=== PATIENT | male | born 1985 | race Caucasian/White ===

== ENCOUNTER 2019-03-17 16:40 | Inpatient (IN) ==
[2019-03-17] MEDS ORDERED: ONDANSETRON 4 MG/2 ML VIAL ONE (17:30)
[2019-03-17] MEDS ORDERED: DICYCLOMINE 20 MG/2 ML AMP IM ONE (17:34)
[2019-03-17] MEDS ORDERED: metroNIDAZOLE INJ 500 MG in PREMIX 1 EACH IV STA (17:34)
[2019-03-17] MEDS ORDERED: ONDANSETRON 4 MG/2 ML VIAL IV STA ×2 (17:34→17:38)
[2019-03-17] MEDS ORDERED: HYDROmorphone 2 MG/1 ML VIAL IV STA (17:34)
[2019-03-17] MEDS ORDERED: SODIUM CHLORIDE 0.9% 2,000 ML IV STA (17:34)
[2019-03-17] MEDS ORDERED: methylPREDNISolone SOD SUC 125 MG/2 ML VIAL IV STA (17:34)
[2019-03-17] MEDS ORDERED: METOCLOPRAMIDE 10 MG/2 ML VIAL IV STA (17:34)
[2019-03-17] MEDS ORDERED: LEVOFLOXACIN INJ 750 MG in PREMIX 1 EACH IV STA (17:34)
[2019-03-17 17:46] LABS: Basophils % 0.2 % (0.0-0.8); Eosinophils % 0.1 % (0.00-10.9); Hematocrit 40.6 VOL% (42.0-52.0); Hemoglobin 14.4 GM/DL (14.0-18.0); Immature Granulocytes % 0.6 %; Lymphocytes % 5.6 % (21.2-54.2); Mean Corpuscular HGB Conc 35.5 GM/DL (32-36); Mean Corpuscular Volume 90.2 FL (87-102); Mean Platelet Volume 8.9 FL (9.6-12.0); Monocytes % 6.8 % (1.7-12.7); Neutrophils % 86.7 % (38.7-73.9); Platelet Count 393 T/CUMM (130-400); Red Cell Distribution Width 12.1 % (9.3-17.3); White Blood Count 17.3 T/CUMM (4-12)
[2019-03-17 18:37] LABS: Apearance,Urine CLEAR (Clear); Bilirubin,Urine Negative (Negative); Blood, Urine Negative (Negative); Glucose,Urine (UA) Negative (Negative); Ketones,Urine 20 mg/dL (Negative); Mucus,Urine Occasional /LPF (Occasional); Nitrite,Urine Negative (Negative); Protein,Urine Negative; RBC,Urine 1 /HPF (0-4); Urine Color Yellow (Yellow); Urine Specific Gravity 1.009 (1.001-1.035); Urine Urobilinogen < 2.0 EU/DL (0.2-1.0); WBC,Urine 1 /HPF (0-6)
[2019-03-17 18:50] LABS: Albumin 3.2 G/DL (3.4-5.0); Bilirubin,Total 0.7 MG/DL (0.2-1.0); Calcium 9.3 MG/DL (8.5-10.1); Osmolality,Calculated 271.1 MOS/KG (273-304); Total Protein 7.9 G/DL (6.4-8.3)
[2019-03-17] MEDS ORDERED: ONDANSETRON 4 MG/2 ML VIAL IV PRN (20:58)
[2019-03-17] MEDS: SODIUM CHLORIDE 0.9% 1,000 ML IV SCH (21:33)
[2019-03-17] MEDS: MELATONIN 3 MG TABLET PO SCH (21:37)
[2019-03-17] MEDS: THEOPHYLLINE ER 300 MG TABLET PO SCH (21:37)
[2019-03-18 03:51] LABS: Basophils % 0.2 % (0.0-0.8); Hematocrit 31.3 VOL% (42.0-52.0); Hemoglobin 10.7 GM/DL (14.0-18.0); Immature Granulocytes % 0.7 %; Immature Granulocytes Absolute 0.13 #; Lymphocytes # 0.9 10*3/uL (1.4-4.0); Lymphocytes % 5.4 % (21.2-54.2); Mean Corpuscular HGB Conc 34.2 GM/DL (32-36); Mean Corpuscular Volume 91.5 FL (87-102); Mean Platelet Volume 8.5 FL (9.6-12.0); Monocytes % 6.8 % (1.7-12.7); Neutrophils % 86.9 % (38.7-73.9); Platelet Count 315 T/CUMM (130-400); Red Blood Count 3.42 MC/CUMM (3.8-5.5); Red Cell Distribution Width 12.2 % (9.3-17.3); White Blood Count 17.5 T/CUMM (4-12)
[2019-03-18 04:07] LABS: Calcium 7.8 MG/DL (8.5-10.1); Osmolality,Calculated 274.7 MOS/KG (273-304)
[2019-03-18] MEDS: SODIUM CHLORIDE 0.9% 1,000 ML IV SCH ×3 (05:18→19:45)
[2019-03-18] MEDS: metroNIDAZOLE INJ 500 MG in PREMIX 1 EACH IV SCH ×4 (05:19→21:32)
[2019-03-18] MEDS: methylPREDNISolone SOD SUC 40 MG/1 ML VIAL IV SCH ×2 (08:33→21:35)
[2019-03-18] MEDS: PANTOPRAZOLE 40 MG TABLET PO SCH (08:33)
[2019-03-18] MEDS: MORPHINE 4 MG/1 ML VIAL IV PRN (08:39)
[2019-03-18] MEDS: THEOPHYLLINE ER 300 MG TABLET PO SCH ×2 (08:50→16:00)
[2019-03-18] MEDS ORDERED: METOPROLOL SUCCINATE XL 50 MG TABLET PO SCH (09:00)
[2019-03-18] MEDS ORDERED: TAMSULOSIN 0.4 MG CAPSULE PO SCH (09:00)
[2019-03-18] MEDS ORDERED: ASPIRIN EC 81 MG TABLET PO SCH (09:00)
[2019-03-18] MEDS ORDERED: MONTELUKAST 10 MG TABLET PO SCH (09:00)
[2019-03-18] MEDS ORDERED: MAGNESIUM SULF RIDER 2 GM in PREMIX 1 EACH IV ONE (09:12)
[2019-03-18] MEDS: MESALAMINE 800 MG TABLET PO SCH (21:34)
[2019-03-18] MEDS: MELATONIN 3 MG TABLET PO SCH (21:34)
[2019-03-18] MEDS: VANCOMYCIN 50 MG/ML 60 ML/BOTTLE PO SCH (23:53)
[2019-03-19] MEDS: SODIUM CHLORIDE 0.9% 1,000 ML IV SCH ×3 (04:40→22:22)
[2019-03-19] MEDS: metroNIDAZOLE INJ 500 MG in PREMIX 1 EACH IV SCH (04:40)
[2019-03-19] MEDS: VANCOMYCIN 50 MG/ML 60 ML/BOTTLE PO SCH ×4 (04:41→20:24)
[2019-03-19 04:59] LABS: Basophils % 0.2 % (0.0-0.8); Eosinophils % 0.1 % (0.00-10.9); Hematocrit 29.5 VOL% (42.0-52.0); Hemoglobin 9.8 GM/DL (14.0-18.0); Immature Granulocytes % 0.8 %; Lymphocytes # 0.7 10*3/uL (1.4-4.0); Lymphocytes % 6.1 % (21.2-54.2); Mean Corpuscular HGB Conc 33.2 GM/DL (32-36); Mean Corpuscular Volume 93.9 FL (87-102); Mean Platelet Volume 8.9 FL (9.6-12.0); Monocytes % 7.9 % (1.7-12.7); Neutrophils % 84.9 % (38.7-73.9); Platelet Count 301 T/CUMM (130-400); Red Blood Count 3.14 MC/CUMM (3.8-5.5); Red Cell Distribution Width 12.6 % (9.3-17.3); White Blood Count 12.1 T/CUMM (4-12)
[2019-03-19 05:16] LABS: Calcium 8.1 MG/DL (8.5-10.1); Osmolality,Calculated 282.1 MOS/KG (273-304)
[2019-03-19] MEDS: MESALAMINE 800 MG TABLET PO SCH ×3 (08:32→20:23)
[2019-03-19] MEDS: methylPREDNISolone SOD SUC 40 MG/1 ML VIAL IV SCH (08:32)
[2019-03-19] MEDS: PANTOPRAZOLE 40 MG TABLET PO SCH (08:33)
[2019-03-19] MEDS: THEOPHYLLINE ER 300 MG TABLET PO SCH (09:38)
[2019-03-19] MEDS: MORPHINE 4 MG/1 ML VIAL IV PRN (11:19)
[2019-03-19] MEDS: MELATONIN 3 MG TABLET PO SCH (20:24)
[2019-03-19] MEDS ORDERED: VANCOMYCIN 50 MG/ML 60 ML/BOTTLE PO SCH (23:00)
[2019-03-20] MEDS: VANCOMYCIN 50 MG/ML 60 ML/BOTTLE PO SCH ×4 (03:21→22:23)
[2019-03-20 05:30] LABS: Basophils % 0.2 % (0.0-0.8); Eosinophils # 0.2 10*3/uL (0.0-0.87); Eosinophils % 2.1 % (0.00-10.9); Hematocrit 26.9 VOL% (42.0-52.0); Immature Granulocytes Absolute 0.08 #; Lymphocytes # 1.6 10*3/uL (1.4-4.0); Lymphocytes % 18.9 % (21.2-54.2); Mean Corpuscular HGB Conc 33.5 GM/DL (32-36); Mean Corpuscular Volume 94.7 FL (87-102); Mean Platelet Volume 8.8 FL (9.6-12.0); Monocytes % 16.5 % (1.7-12.7); Neutrophils % 61.3 % (38.7-73.9); Platelet Count 254 T/CUMM (130-400); Red Blood Count 2.84 MC/CUMM (3.8-5.5); Red Cell Distribution Width 12.8 % (9.3-17.3); White Blood Count 8.3 T/CUMM (4-12)
[2019-03-20 05:53] LABS: Calcium 7.8 MG/DL (8.5-10.1); Osmolality,Calculated 279.1 MOS/KG (273-304)
[2019-03-20] MEDS: SODIUM CHLORIDE 0.9% 1,000 ML IV SCH ×3 (06:16→22:27)
[2019-03-20 06:17] LABS: Band Neutrophils 6 % (0-10); Eosinophils 2 % (0-10); Lymphocytes 19 % (20-55); Platelet Estimate Normal; Segmented Neutrophils 58 % (50-85); Total Cells Counted 100
[2019-03-20] MEDS: MORPHINE 4 MG/1 ML VIAL IV PRN (08:38)
[2019-03-20] MEDS: MESALAMINE 800 MG TABLET PO SCH ×3 (08:41→22:24)
[2019-03-20] MEDS: PANTOPRAZOLE 40 MG TABLET PO SCH (08:41)
[2019-03-20] MEDS ORDERED: methylPREDNISolone SOD SUC 40 MG/1 ML VIAL IV SCH (09:00)
[2019-03-20] MEDS: ACETAMINOPHEN 325 MG TABLET PO PRN (20:54)
[2019-03-20] MEDS: MELATONIN 3 MG TABLET PO SCH (20:56)
[2019-03-21] MEDS: VANCOMYCIN 50 MG/ML 60 ML/BOTTLE PO SCH ×4 (03:25→21:13)
[2019-03-21 05:53] LABS: Basophils % 0.3 % (0.0-0.8); Eosinophils # 0.2 10*3/uL (0.0-0.87); Eosinophils % 2.2 % (0.00-10.9); Hematocrit 29.7 VOL% (42.0-52.0); Hemoglobin 10.1 GM/DL (14.0-18.0); Immature Granulocytes % 0.7 %; Immature Granulocytes Absolute 0.07 #; Lymphocytes # 1.6 10*3/uL (1.4-4.0); Lymphocytes % 15.7 % (21.2-54.2); Mean Corpuscular Volume 94.6 FL (87-102); Mean Platelet Volume 8.2 FL (9.6-12.0); Monocytes % 18.4 % (1.7-12.7); Neutrophils % 62.7 % (38.7-73.9); Platelet Count 261 T/CUMM (130-400); Red Blood Count 3.14 MC/CUMM (3.8-5.5); Red Cell Distribution Width 12.7 % (9.3-17.3); White Blood Count 10.4 T/CUMM (4-12)
[2019-03-21 06:15] LABS: Band Neutrophils 3 % (0-10); Eosinophils 3 % (0-10); Lymphocytes 10 % (20-55); Segmented Neutrophils 66 % (50-85); Total Cells Counted 100
[2019-03-21 06:16] LABS: Hypochromasia Slight; Microcytosis Slight
[2019-03-21] MEDS: SODIUM CHLORIDE 0.9% 1,000 ML IV SCH ×2 (06:30→18:32)
[2019-03-21] MEDS: predniSONE 10 MG TABLET PO SCH (08:35)
[2019-03-21] MEDS: MESALAMINE 800 MG TABLET PO SCH ×3 (08:36→21:10)
[2019-03-21] MEDS: PANTOPRAZOLE 40 MG TABLET PO SCH (08:36)
[2019-03-21] MEDS: ACETAMINOPHEN 325 MG TABLET PO PRN ×2 (10:55→18:31)
[2019-03-21] MEDS: MELATONIN 3 MG TABLET PO SCH (21:18)
[2019-03-22] MEDS: VANCOMYCIN 50 MG/ML 60 ML/BOTTLE PO SCH ×4 (03:54→20:41)
[2019-03-22 07:57] LABS: Basophils % 0.2 % (0.0-0.8); Eosinophils # 0.3 10*3/uL (0.0-0.87); Hematocrit 28.5 VOL% (42.0-52.0); Hemoglobin 9.6 GM/DL (14.0-18.0); Immature Granulocytes % 0.7 %; Immature Granulocytes Absolute 0.06 #; Lymphocytes # 1.5 10*3/uL (1.4-4.0); Lymphocytes % 17.6 % (21.2-54.2); Mean Corpuscular HGB Conc 33.7 GM/DL (32-36); Mean Corpuscular Volume 94.1 FL (87-102); Mean Platelet Volume 8.7 FL (9.6-12.0); Monocytes % 18.6 % (1.7-12.7); Neutrophils % 59.9 % (38.7-73.9); Platelet Count 290 T/CUMM (130-400); Red Blood Count 3.03 MC/CUMM (3.8-5.5); Red Cell Distribution Width 12.5 % (9.3-17.3); White Blood Count 8.7 T/CUMM (4-12)
[2019-03-22 08:19] LABS: Band Neutrophils 5 % (0-10); Eosinophils 6 % (0-10); Hypochromasia 1+; Lymphocytes 12 % (20-55); Platelet Estimate Adequate; Segmented Neutrophils 64 % (50-85); Total Cells Counted 100
[2019-03-22 08:20] LABS: Microcytosis Slight
[2019-03-22] MEDS: metroNIDAZOLE INJ 500 MG in PREMIX 1 EACH IV SCH ×2 (09:42→16:37)
[2019-03-22] MEDS: SODIUM CHLORIDE 0.9% 1,000 ML IV SCH ×2 (09:43→23:07)
[2019-03-22] MEDS: MESALAMINE 800 MG TABLET PO SCH ×3 (14:53→20:41)
[2019-03-22] MEDS: ACETAMINOPHEN 325 MG TABLET PO PRN ×2 (16:35→20:40)
[2019-03-22] MEDS: PANTOPRAZOLE 40 MG TABLET PO SCH (16:36)
[2019-03-22] MEDS: predniSONE 10 MG TABLET PO SCH (16:36)
[2019-03-22] MEDS: MELATONIN 3 MG TABLET PO SCH (22:05)
[2019-03-23] MEDS: metroNIDAZOLE INJ 500 MG in PREMIX 1 EACH IV SCH ×3 (01:23→16:59)
[2019-03-23] MEDS: VANCOMYCIN 50 MG/ML 60 ML/BOTTLE PO SCH ×4 (03:35→21:58)
[2019-03-23 05:16] LABS: Basophils % 0.2 % (0.0-0.8); Eosinophils % 0.3 % (0.00-10.9); Hematocrit 29.3 VOL% (42.0-52.0); Hemoglobin 9.8 GM/DL (14.0-18.0); Immature Granulocytes % 0.5 %; Immature Granulocytes Absolute 0.06 #; Lymphocytes # 0.9 10*3/uL (1.4-4.0); Lymphocytes % 7.9 % (21.2-54.2); Mean Corpuscular HGB Conc 33.4 GM/DL (32-36); Mean Platelet Volume 8.8 FL (9.6-12.0); Monocytes % 14.3 % (1.7-12.7); Neutrophils % 76.8 % (38.7-73.9); Platelet Count 347 T/CUMM (130-400); Red Blood Count 3.15 MC/CUMM (3.8-5.5); Red Cell Distribution Width 12.5 % (9.3-17.3); White Blood Count 11.3 T/CUMM (4-12)
[2019-03-23 05:41] LABS: Hypochromasia 1+; Platelet Estimate Adequate
[2019-03-23 05:42] LABS: Microcytosis Slight
[2019-03-23] MEDS: PANTOPRAZOLE 40 MG TABLET PO SCH (08:52)
[2019-03-23] MEDS: predniSONE 10 MG TABLET PO SCH ×2 (08:52→13:36)
[2019-03-23] MEDS: MESALAMINE 800 MG TABLET PO SCH ×3 (08:52→21:57)
[2019-03-23] MEDS: methylPREDNISolone SOD SUC 40 MG/1 ML VIAL IV SCH (12:29)
[2019-03-23] MEDS: SODIUM CHLORIDE 0.9% 1,000 ML IV SCH ×3 (12:36→20:05)
[2019-03-23] MEDS: MELATONIN 3 MG TABLET PO SCH (21:58)
[2019-03-24] MEDS: metroNIDAZOLE INJ 500 MG in PREMIX 1 EACH IV SCH ×3 (02:08→18:24)
[2019-03-24] MEDS: VANCOMYCIN 50 MG/ML 60 ML/BOTTLE PO SCH ×4 (02:10→20:45)
[2019-03-24 04:59] LABS: Basophils % 0.1 % (0.0-0.8); Eosinophils # 0.2 10*3/uL (0.0-0.87); Eosinophils % 1.7 % (0.00-10.9); Hematocrit 28.5 VOL% (42.0-52.0); Hemoglobin 9.5 GM/DL (14.0-18.0); Immature Granulocytes % 0.5 %; Immature Granulocytes Absolute 0.06 #; Lymphocytes # 1.3 10*3/uL (1.4-4.0); Lymphocytes % 10.9 % (21.2-54.2); Mean Corpuscular HGB Conc 33.3 GM/DL (32-36); Mean Corpuscular Volume 92.5 FL (87-102); Mean Platelet Volume 8.4 FL (9.6-12.0); Monocytes % 15.3 % (1.7-12.7); Neutrophils % 71.5 % (38.7-73.9); Platelet Count 383 T/CUMM (130-400); Red Blood Count 3.08 MC/CUMM (3.8-5.5); Red Cell Distribution Width 12.3 % (9.3-17.3); White Blood Count 11.5 T/CUMM (4-12)
[2019-03-24] MEDS: SODIUM CHLORIDE 0.9% 1,000 ML IV SCH ×2 (05:12→19:15)
[2019-03-24 05:19] LABS: Calcium 8.5 MG/DL (8.5-10.1); Osmolality,Calculated 280.1 MOS/KG (273-304)
[2019-03-24 06:51] LABS: Band Neutrophils 3 % (0-10); Eosinophils 2 % (0-10); Lymphocytes 9 % (20-55); Segmented Neutrophils 79 % (50-85); Total Cells Counted 100
[2019-03-24 06:52] LABS: Microcytosis 1+; Platelet Estimate Normal
[2019-03-24] MEDS: MESALAMINE 800 MG TABLET PO SCH ×3 (08:37→20:45)
[2019-03-24] MEDS: methylPREDNISolone SOD SUC 40 MG/1 ML VIAL IV SCH (08:37)
[2019-03-24] MEDS: PANTOPRAZOLE 40 MG TABLET PO SCH (08:37)
[2019-03-24] MEDS: MELATONIN 3 MG TABLET PO SCH (20:22)
[2019-03-25] MEDS: SODIUM CHLORIDE 0.9% 1,000 ML IV SCH ×4 (00:20→22:19)
[2019-03-25] MEDS: metroNIDAZOLE INJ 500 MG in PREMIX 1 EACH IV SCH ×3 (01:59→17:16)
[2019-03-25] MEDS: VANCOMYCIN 50 MG/ML 60 ML/BOTTLE PO SCH ×4 (02:00→21:17)
[2019-03-25 03:19] LABS: Basophils % 0.2 % (0.0-0.8); Eosinophils # 0.1 10*3/uL (0.0-0.87); Eosinophils % 1.2 % (0.00-10.9); Hematocrit 29.4 VOL% (42.0-52.0); Hemoglobin 9.6 GM/DL (14.0-18.0); Immature Granulocytes % 0.6 %; Immature Granulocytes Absolute 0.07 #; Lymphocytes # 1.6 10*3/uL (1.4-4.0); Lymphocytes % 14.2 % (21.2-54.2); Mean Corpuscular HGB Conc 32.7 GM/DL (32-36); Mean Corpuscular Volume 94.2 FL (87-102); Mean Platelet Volume 8.2 FL (9.6-12.0); Monocytes % 16.6 % (1.7-12.7); Neutrophils % 67.2 % (38.7-73.9); Platelet Count 396 T/CUMM (130-400); Red Blood Count 3.12 MC/CUMM (3.8-5.5); Red Cell Distribution Width 12.7 % (9.3-17.3); White Blood Count 11.2 T/CUMM (4-12)
[2019-03-25 03:41] LABS: Calcium 8.5 MG/DL (8.5-10.1); Osmolality,Calculated 280.1 MOS/KG (273-304)
[2019-03-25 03:57] LABS: Band Neutrophils 4 % (0-10); Eosinophils 1 % (0-10); Lymphocytes 17 % (20-55); Segmented Neutrophils 66 % (50-85)
[2019-03-25 03:58] LABS: Platelet Estimate Normal; Total Cells Counted 100
[2019-03-25] MEDS: ACETAMINOPHEN 325 MG TABLET PO PRN (09:11)
[2019-03-25] MEDS: PANTOPRAZOLE 40 MG TABLET PO SCH (09:15)
[2019-03-25] MEDS: MESALAMINE 800 MG TABLET PO SCH ×3 (09:15→20:56)
[2019-03-25] MEDS: methylPREDNISolone SOD SUC 40 MG/1 ML VIAL IV SCH (09:16)
[2019-03-25] MEDS: MELATONIN 3 MG TABLET PO SCH (20:35)
[2019-03-26] MEDS: metroNIDAZOLE INJ 500 MG in PREMIX 1 EACH IV SCH ×3 (01:02→19:00)
[2019-03-26] MEDS: SODIUM CHLORIDE 0.9% 1,000 ML IV SCH ×3 (01:02→20:30)
[2019-03-26] MEDS: VANCOMYCIN 50 MG/ML 60 ML/BOTTLE PO SCH ×4 (02:48→20:30)
[2019-03-26 05:36] LABS: Basophils % 0.1 % (0.0-0.8); Eosinophils # 0.1 10*3/uL (0.0-0.87); Eosinophils % 0.7 % (0.00-10.9); Hematocrit 28.7 VOL% (42.0-52.0); Hemoglobin 9.4 GM/DL (14.0-18.0); Immature Granulocytes % 1.1 %; Immature Granulocytes Absolute 0.12 #; Lymphocytes # 1.7 10*3/uL (1.4-4.0); Lymphocytes % 15.5 % (21.2-54.2); Mean Corpuscular HGB Conc 32.8 GM/DL (32-36); Mean Corpuscular Volume 94.4 FL (87-102); Mean Platelet Volume 8.6 FL (9.6-12.0); Monocytes % 15.6 % (1.7-12.7); Platelet Count 427 T/CUMM (130-400); Red Blood Count 3.04 MC/CUMM (3.8-5.5); Red Cell Distribution Width 12.8 % (9.3-17.3)
[2019-03-26 05:59] LABS: Calcium 8.3 MG/DL (8.5-10.1); Osmolality,Calculated 279.1 MOS/KG (273-304)
[2019-03-26 06:59] LABS: Band Neutrophils 6 % (0-10); Eosinophils 1 % (0-10); Lymphocytes 18 % (20-55); Segmented Neutrophils 64 % (50-85)
[2019-03-26 07:00] LABS: Platelet Estimate Adequate; Total Cells Counted 100
[2019-03-26] MEDS: PANTOPRAZOLE 40 MG TABLET PO SCH (09:22)
[2019-03-26] MEDS: predniSONE 20 MG TABLET PO SCH (09:22)
[2019-03-26] MEDS: MESALAMINE 800 MG TABLET PO SCH ×3 (09:22→20:28)
[2019-03-26] MEDS: ACETAMINOPHEN 325 MG TABLET PO PRN ×2 (09:29→22:05)
[2019-03-26] MEDS: MELATONIN 3 MG TABLET PO SCH (21:49)
[2019-03-27] MEDS: metroNIDAZOLE INJ 500 MG in PREMIX 1 EACH IV SCH ×2 (02:12→08:39)
[2019-03-27] MEDS: VANCOMYCIN 50 MG/ML 60 ML/BOTTLE PO SCH ×2 (02:25→08:37)
[2019-03-27 05:31] LABS: Basophils % 0.3 % (0.0-0.8); Eosinophils # 0.2 10*3/uL (0.0-0.87); Eosinophils % 1.5 % (0.00-10.9); Hematocrit 26.8 VOL% (42.0-52.0); Immature Granulocytes % 1.1 %; Immature Granulocytes Absolute 0.12 #; Lymphocytes # 1.9 10*3/uL (1.4-4.0); Lymphocytes % 16.8 % (21.2-54.2); Mean Corpuscular HGB Conc 33.6 GM/DL (32-36); Mean Platelet Volume 8.3 FL (9.6-12.0); Monocytes % 14.4 % (1.7-12.7); Neutrophils % 65.9 % (38.7-73.9); Platelet Count 410 T/CUMM (130-400); Red Blood Count 2.85 MC/CUMM (3.8-5.5); Red Cell Distribution Width 12.8 % (9.3-17.3); White Blood Count 11.4 T/CUMM (4-12)
[2019-03-27] MEDS: SODIUM CHLORIDE 0.9% 1,000 ML IV SCH (05:32)
[2019-03-27 06:14] LABS: Calcium 8.3 MG/DL (8.5-10.1)
[2019-03-27] MEDS: MESALAMINE 800 MG TABLET PO SCH (08:37)
[2019-03-27] MEDS: PANTOPRAZOLE 40 MG TABLET PO SCH (08:37)
[2019-03-27] MEDS: predniSONE 20 MG TABLET PO SCH (08:37)
[2019-03-27 11:20] VITALS: BP 127/72
== END 2019-03-27 13:54 | disposition home or self-care (01) | DRG 372 ==
LOC: N.ED 16:40 → N.EDINP 19:38 → SUATTDRO 19:38 → N.2E 19:55
PROVIDERS: ADMIT Internal Medicine; ATTEND Internal Medicine